=== PATIENT | male | born 1940 | race Caucasian/White ===

== ENCOUNTER → 2018-08-02 | Outpatient (CLI) | payer MEDICARE ==
[~2018-08-02] MED LIST: FOLIC ACID1 MG PO; GABAPENTIN300 MG PO; IOPAMIDOL 300 MG/ML 15ML VIAL IT ONE; LEVOTHYROXINE112 MCG PO; LIDOCAINE HCL 1% LOCAL INJ 20 ML VIAL ONE; LORAZEPAM1 MG PO; LOSARTAN-HCTZ1 EAC2 PO; MELOXICAM7.5 MG PO; NORCO 7.5-3251 EACH PO
--- NOTE | 2018-08-02 12:46 | Diagnostic Imaging Report ---
Procedure: Left hip joint injection with fluoroscopic guidance. coordinate measuring equipment operator: Dr. Hu Styles Pre-operative diagnosis: Left hip pain Post-operative diagnosis: Left hip pain Medications: Lidocaine 1% for local anesthesia, Intra-articular: 2 cc of 1% subcutaneous lidocaine, 80 mg (2 cc) of Methylprednisolone (Depo-Medrol), 2 cc of Isovue M300 Fluoroscopy time: 2 minutes; Dose area product: 140.4 mGy-cm2 Estimated blood loss: None Specimens: None Implants: None DISCUSSION: Informed consent was obtained and documented in the medical record after discussion of risks and benefits. The patient was placed in the supine position on the fluoroscopic table with the right hip internally rotated. The skin overlying the right femoral head was prepped and draped in sterile fashion. Subsequently, 1% lidocaine was administered for local anesthesia. Then under intermittent fluoroscopic guidance, a 22-gauge x 5 inch needle was advanced to the lateral aspect of the left femoral head near the head-neck junction. Subsequently, contrast injection confirmed intra-articular position. Sequentially, lidocaine and Methylprednisolone was injected intra-articularly with the dosing above. The needle was removed. The patient tolerated the procedure well without immediate complication. IMPRESSION: Left hip joint anesthetic and steroid intra-articular injection with fluoroscopic guidance. Signed by: Dr. Hu Styles MD on 08/02/2018 12:43 PM
== END ==
LOC: DX 08:17
PROVIDERS: ATTEND Family Medicine
DX: M25.552 Pain in left hip (principal)
CPT/HCPCS: 20610; J2001; Q9967

== ENCOUNTER → 2020-11-10 | Outpatient (CLI) | payer MEDICARE, OTHER ==
[~2020-11-10] MED LIST changes: +COVID-19 VACC, MRNA(MODERNA)/PF 100 MCG/0.5 ML VIAL IM ONE; -IOPAMIDOL 300 MG/ML 15ML VIAL IT ONE; -LIDOCAINE HCL 1% LOCAL INJ 20 ML VIAL ONE
== END | disposition home or self-care (01) ==
LOC: VACCPMC 17:54
DX: Z23 Encounter for immunization (principal); Z20.822 Contact with and (suspected) exposure to COVID-19
CPT/HCPCS: 91301

== ENCOUNTER → 2020-12-08 | Outpatient (CLI) | payer MEDICARE, OTHER | END | disposition home or self-care (01) | LOC: VACCPMC 11:41 | DX: Z23 Encounter for immunization (principal); Z20.822 Contact with and (suspected) exposure to COVID-19 | CPT/HCPCS: 91301 ==